=== PATIENT | male | born 1965 | race Caucasian/White ===

== ENCOUNTER 2020-11-07 15:11 | Outpatient (REF) | payer SELFPAY ==
[2020-11-08 20:18] LABS: COVID-19 RT-PCR UVMMC Result Negative (Negative)
== END 2020-11-07 15:12 | disposition home or self-care (01) ==
LOC: LBN 15:11
PROVIDERS: Visit Provider Nurse Practitioner Family
DX: Z20.822 Contact with and (suspected) exposure to COVID-19 (principal)
CPT/HCPCS: U0003